=== PATIENT | female | born 1995 | race Caucasian/White ===

== ENCOUNTER 2017-02-26 23:56 | Emergency (ER) | payer SELFPAY ==
[~2017-02-26] VITALS: Ht 165.1 cm; Wt 81.6 kg
[2017-02-27] MEDS ORDERED: ACETAMINOPHEN 325 MG TABLET PO ONE (00:30)
[2017-02-27] MEDS ORDERED: ACETAMINOPHEN 325 MG TABLET ONE (00:33)
[2017-02-27 00:47] LABS: HEMOGLOBIN 13.6 g/dL (11.7-16.4)
[2017-02-27 00:50] LABS: BLOOD UREA NITROGEN 10 mg/dL (7-18)
[2017-02-27 00:54] LABS: IS PT STATUS REG ER OR PRE ER? YES
[2017-02-27 01:29] VITALS: BP 117/73
== END 2017-02-27 01:31 | disposition home or self-care (01) ==
LOC: ED 23:59
DX: R07.89 Other chest pain (principal); F15.10 Other stimulant abuse, uncomplicated
CPT/HCPCS: 36415; 71010; 80048; 82040; 84484; 85025; 85379; 93005